=== PATIENT | female | born 1945 | race Caucasian/White ===

== ENCOUNTER 2017-05-03 12:46 | Observation (INO) | payer OTHER, MEDICARE ==
[~2017-05-03] VITALS: Ht 147.3 cm; Wt 51.1 kg
[~2017-05-03 12:46] MED LIST: ASPCH81; B-COCAP2 PO; CALCIUM PO; CHOL100010 PO; FLV400 PO; KRILL PO; MAGNESIUM PO; NICIAN; RESVERATROL PO; ZINC PO
[2017-05-03] MEDS ORDERED: ASPIRIN 81 MG CHEW PO STA (13:19)
--- NOTE | 2017-05-03 13:37 | EMERGENCY ROOM VISIT NOTE ---
History First contact with patient: 13:06 Chief Complaint: CHEST PAIN Stated Complaint: CHEST PAIN Nursing Triage Summary: patient states about 11 am " I had really bad chest pains. It lasted about 45 mins. I dont have any pain right now. We were painting when it started." shortness of breath with the chest pains. started new medication for cholesterol 3 days ago History of Present Illness The patient is a 71 year old female who presents to the Emergency Room with complaints of exertional chest pain that started 11 AM today. Patient states that she was painting with a roller when her symptoms started. She states that her chest pain lasted approximately 45 minutes, gradually got better, and is completely gone now. She describes the chest pain as a pressure and heaviness in the center of her chest, radiates to both sides and into her back, came on gradually over several minutes and was very intense, now completely resolved and rates her pain as 0/10. She had associated shortness of breath with the chest pain, she states that has also resolved since the pain is gone. She now just complains of feeling generally weak and fatigued. She denies any associated nausea or vomiting, diaphoresis, dizziness or syncope. She denies any radiation of pain into her neck, jaw, or arms. She takes a baby aspirin daily, today she took 2 baby aspirins when her chest pain started. She is a current every day smoker, one half pack per day. She reports that she has been having high blood pressure for the past few months, she was started on losartan 2 months ago and started taking a statin 3 days ago. She also reports a family history of heart disease on her father's side. She has never had a stress test before. She denies any headaches, vision changes, neck pain or stiffness, back pain, abdominal pain, diarrhea or constipation, bloody or black stools, urinary symptoms, or rash. Review of Systems A complete 10 point review of systems was reviewed with the patient with pertinent positives and negatives as per history of present illness. All else were negative. Past Medical/Surgical History Medical Problems: (1) Chest pain Social History Smoking Status: Current Every Day Smoker Alcohol Use: none Drug Use: none Marital Status: Housing Status: lives with significant other Current/Historical Medications Scheduled Aspirin (Aspirin), 81 MG PO DAILY B-Complex Vitamins (Vitamin B Complex), 1 TAB PO DAILY Qxphqtq-Llltayrxg-Jnxa (Calcium Magnesium & Zinc), 1 TAB PO DAILY Cholecalciferol (Vitamin D), 2,000 UNITS PO DAILY Folic Acid (Folic Acid), 400 MCG PO DAILY Losartan Potassium (Losartan Potassium), 50 MG PO DAILY [place]-3 Fatty Acids-Cholecalci (Dry Eye [place] Benefits/Vi), 1 CAP PO DAILY Pravastatin Sod (Pravastatin Sodium), 10 MG PO DAILY Allergies Reviewed in chart Physical Exam Vital Signs Date Time Temp Pulse Resp B/P (MAP) Pulse Ox O2 Delivery O2 Flow Rate FiO2 05/03/17 15:51 97 Room Air 05/03/17 13:28 68 18 171/58 97 Room Air 05/03/17 13:10 64 05/03/17 13:09 99 Room Air 05/03/17 12:49 36.7 65 18 154/62 99 Room Air Physical Exam CONSTITUTIONAL: Pleasant and cooperative. No acute distress. Well appearing and well nourished. HEENT: Normocephalic, atraumatic. Pupils equal, round and reactive to light, EOMI. TMs normal. Pharynx normal. Moist mucous membranes. NECK: Supple, full active range of motion without discomfort. No cervical adenopathy. RESPIRATORY: Clear to auscultation bilaterally with no wheezing, crackles, rhonchi or stridor. Equal expansion bilaterally. CARDIOVASCULAR: Regular rate and rhythm with no murmurs, rubs or gallops. Normal peripheral perfusion. No edema. GASTROINTESTINAL: Soft, nontender, nondistended. No palpable masses or HSM. Bowel sounds present in all quadrants. MUSCULOSKELETAL: Full range of motion of all joints without discomfort. No calf swelling or tenderness to palpation. INTEGUMENTARY: No rash or other significant dermatologic conditions noted. NEUROLOGIC: Alert and oriented X 4 with normal affect. Cranial nerves II-XII grossly intact. No focal neurologic deficits noted. Normal strength and sensation in all 4 extremities. Normal speech. Normal gait observed. Medical Decision & Procedures ER Provider Diagnostic Interpretation: TWO VIEW CHEST CLINICAL HISTORY: Atypical chest pain.. FINDINGS: PA and lateral chest radiographs are compared to study dated 01/19/2010. The heart is top normal for projection. There is atherosclerotic calcification of the thoracic aorta. Emphysema and chronic interstitial thickening are similar to previous. There is mild bibasilar atelectasis. A trace left pleural effusion is noted on the lateral view. No airspace consolidation is identified typical for pneumonia. There is no pneumothorax. The skeletal structures are osteopenic. Degenerative changes seen throughout the thoracic spine. IMPRESSION: 1. Suspect emphysema. 2. A trace left pleural effusion is noted on the lateral view. There is no airspace consolidation identified typical for pneumonia. Laboratory Results 05/03/17 13:05 Red Blood Count 4.02, Mean Corpuscular Volume 98.5, Mean Corpuscular Hemoglobin 33.3, Mean Corpuscular Hemoglobin Concent 33.8, Mean Platelet Volume 9.9, Neutrophils (%) (Auto) 64.3, Lymphocytes (%) (Auto) 25.7, Monocytes (%) (Auto) 7.4, Eosinophils (%) (Auto) 1.9, Basophils (%) (Auto) 0.4, Neutrophils # (Auto) 8.67, Lymphocytes # (Auto) 3.46, Monocytes # (Auto) 1.00, Eosinophils # (Auto) 0.26, Basophils # (Auto) 0.05 05/03/17 13:05 Test 05/03/17 13:05 White Blood Count 13.48 K/uL (4.8-10.8) Red Blood Count 4.02 M/uL (4.2-5.4) Hemoglobin 13.4 g/dL (12.0-16.0) Hematocrit 39.6 % (37-47) Mean Corpuscular Volume 98.5 fL (80-100) Mean Corpuscular Hemoglobin 33.3 pg (25-34) Mean Corpuscular Hemoglobin Concent 33.8 g/dl (32-36) Platelet Count 256 K/uL (130-400) Mean Platelet Volume 9.9 fL (7.4-10.4) Neutrophils (%) (Auto) 64.3 % Lymphocytes (%) (Auto) 25.7 % Monocytes (%) (Auto) 7.4 % Eosinophils (%) (Auto) 1.9 % Basophils (%) (Auto) 0.4 % Neutrophils # (Auto) 8.67 K/uL (1.4-6.5) Lymphocytes # (Auto) 3.46 K/uL (1.2-3.4) Monocytes # (Auto) 1.00 K/uL (0.11-0.59) Eosinophils # (Auto) 0.26 K/uL (0-0.5) Basophils # (Auto) 0.05 K/uL (0-0.2) RDW Standard Deviation 49.4 fL (36.4-46.3) RDW Coefficient of Variation 13.8 % (11.5-14.5) Immature Granulocyte % (Auto) 0.3 % Immature Granulocyte # (Auto) 0.04 K/uL (0.00-0.02) Prothrombin Time 9.9 SECONDS (9.0-12.0) Prothromb Time International Ratio 0.9 (0.9-1.1) Activated Partial Thromboplast Time 25.9 SECONDS (21.0-31.0) Partial Thromboplastin Ratio 1.0 Anion Gap 8.0 mmol/L (3-11) Est Creatinine Clear Calc Drug Dose 47.3 ml/min Estimated GFR () 90.8 Estimated GFR (Non- 78.4 BUN/Creatinine Ratio 33.2 (10-20) Calcium Level 9.6 mg/dl (8.5-10.1) Total Bilirubin 0.3 mg/dl (0.2-1) Direct Bilirubin < 0.1 mg/dl (0-0.2) Aspartate Amino Transf (AST/SGOT) 13 U/L (15-37) Alanine Aminotransferase (ALT/SGPT) 17 U/L (12-78) Alkaline Phosphatase 69 U/L (45-117) Troponin I < 0.015 ng/ml (0-0.045) Total Protein 7.7 gm/dl (6.4-8.2) Albumin 3.9 gm/dl (3.4-5.0) Lipase 238 U/L (73-393) Medications Administered Medications (Trade) Dose Ordered Sig/Jaret Route Start Time Stop Time Status Last Admin Dose Admin Aspirin (Aspirin Chew) 162 mg NOW STAT PO 05/03/17 13:19 05/03/17 13:22 DC 05/03/17 13:28 162 MG ECG Indication: chest pain Rate (beats per minute): 63 Rhythm: normal sinus Findings: no acute ischemic change, no ectopy, other (short VA interval) Change: no significant change (when compared to EKG from 01/19/2010) Medical Decision CC: Patient presenting with complaint of chest pain Interpretation of Labs: Mild leukocytosis, no anemia, no significant electrolyte abnormalities, mildly elevated BUN, but normal creatinine, normal liver enzymes and lipase. Initial troponin is negative. Coagulation factors WNL. Differential Diagnosis: Includes, but not limited to acute coronary syndrome, pulmonary embolism, aortic dissection, pneumothorax, pericarditis, anxiety, musculoskeletal pain, GERD, costochondritis, pneumonia, among others. Medication Reconciliation: I attest that I have personally reviewed the patient' s current medication list. Initial vital signs review: I reviewed the patient's vital signs and interpret them as follows: T: Afebrile; BP: Hypertensive; HR: Within normal limits; RR : Within normal limits; Pulse Ox: Within normal limits on room air. Blood pressure screening: The patient was found to have an elevated blood pressure and was referred to their primary doctor for recheck and further treatment. Summary: Patient was evaluated at bedside, history and physical exam performed. Patient is alert and oriented, in no acute distress, resting, in stretcher. She denies any symptoms of chest pain or shortness of breath at this time. Patient relates a history of chest pain that came on during exertion and relieved with rest. She has risk factors of smoking, hypertension, hyperlipidemia, and family history of heart disease. Heart score 5. Orders were placed at bedside for labs, chest x-ray, EKG to evaluate for acute coronary syndrome. EKG reviewed at bedside, normal sinus rhythm with a short VA rate of 63 bpm, no acute ischemic changes by my interpretation. Patient took 2 baby aspirin this morning, she was given 2 additional baby aspirin for complete dose of aspirin. She was not given any additional medications that she currently denies any chest pain. Patient discussed with Dr. Barron, who agrees with my assessment and plan. Labs reviewed as above, noting some leukocytosis. Negative troponin. Chest x-ray shows a small left pleural effusion but no evidence of pneumonia. I spoke with Dr. Jones, hospitalist, who agrees to evaluate the patient for admission. Patient reassessed multiple times throughout ED stay, she continues to deny chest pain or any other complaints. The patient and her were updated on all results and plan for admission to the hospital for chest pain rule out, they verbalized understanding and the patient was agreeable to admission. Patient was stable at time of admission. Impression Primary Impression: Exertional chest pain Departure Information Dispostion Admitted as an inpatient Condition FAIR Referrals Digna Pagan D.O. (PCP) Patient Instructions My [facility]
[2017-05-03 13:40] LABS: BASO % 0.4 %; BASO ABS # 0.05 K/uL (0-0.2); EOS % 1.9 %; EOS ABS # 0.26 K/uL (0-0.5); HEMATOCRIT 39.6 % (37-47); HEMOGLOBIN 13.4 g/dL (12.0-16.0); IG# 0.04 K/uL (0.00-0.02); LYMPH % 25.7 %; LYMPH ABS # 3.46 K/uL (1.2-3.4); MEAN CELL VOLUME 98.5 fL (80-100); MEAN CORPUSCULAR HEMOGLOBIN 33.3 pg (25-34); MEAN CORPUSCULAR HGB CONC 33.8 g/dl (32-36); MEAN PLATELET VOLUME 9.9 fL (7.4-10.4); MONO % 7.4 %; NEUT % 64.3 %; NEUT ABS # 8.67 K/uL (1.4-6.5); PLATELET COUNT 256 K/uL (130-400); RED CELL DISTRIBUTION WIDTH CV 13.8 % (11.5-14.5); RED CELL DISTRIBUTION WIDTH SD 49.4 fL (36.4-46.3); WHITE BLOOD COUNT 13.48 K/uL (4.8-10.8)
[2017-05-03 13:51] LABS: INR 0.9 (0.9-1.1); PTT PATIENT 25.9 SECONDS (21.0-31.0)
[2017-05-03 14:04] LABS: ALBUMIN 3.9 gm/dl (3.4-5.0); ALT/SGPT 17 U/L (12-78); BLOOD UREA NITROGEN 25 mg/dl (7-18); CALCIUM 9.6 mg/dl (8.5-10.1); CARBON DIOXIDE 25 mmol/L (21-32); CREATININE 0.76 mg/dl (0.60-1.20); GLUCOSE 87 mg/dl (70-99); LIPASE 238 U/L (73-393); POTASSIUM 4.1 mmol/L (3.5-5.1); SODIUM 134 mmol/L (136-145)
[2017-05-03] MEDS ORDERED: B-COTAB18 PO (14:05)
[2017-05-03] MEDS ORDERED: CZR50 PO (14:05)
[2017-05-03] MEDS ORDERED: OMEG-10 PO (14:05)
[2017-05-03] MEDS ORDERED: CHOL20009 PO (14:05)
[2017-05-03] MEDS ORDERED: ASPI1TAB83 PO (14:05)
[2017-05-03] MEDS ORDERED: FLV400 PO (14:05)
[2017-05-03] MEDS ORDERED: PRVC10 PO (14:05)
[2017-05-03] MEDS ORDERED: CALC1TAB27 PO (14:05)
[2017-05-03 14:09] LABS: ALKALINE PHOSPHATASE 69 U/L (45-117); AST/SGOT 13 U/L (15-37); TOTAL PROTEIN 7.7 gm/dl (6.4-8.2)
--- NOTE | 2017-05-03 14:32 | DIAGNOSTIC IMAGING REPORT ---
TWO VIEW CHEST CLINICAL HISTORY: Atypical chest pain.. FINDINGS: PA and lateral chest radiographs are compared to study dated 01/19/2010. The heart is top normal for projection. There is atherosclerotic calcification of the thoracic aorta. Emphysema and chronic interstitial thickening are similar to previous. There is mild bibasilar atelectasis. A trace left pleural effusion is noted on the lateral view. No airspace consolidation is identified typical for pneumonia. There is no pneumothorax. The skeletal structures are osteopenic. Degenerative changes seen throughout the thoracic spine. IMPRESSION: 1. Suspect emphysema. 2. A trace left pleural effusion is noted on the lateral view. There is no airspace consolidation identified typical for pneumonia. Electronically signed by: Santy Colon M.D. 05/03/2017 2:30 PM Dictated Date/Time: 05/03/2017 2:29 PM
--- NOTE | 2017-05-03 15:21 | EMERGENCY ROOM VISIT NOTE ---
ED Visit Note First contact with patient: 13:07 I have seen and examined this patient with Ruby Shelby and generally agree with the treatment plan as discussed. Current/Historical Medications Scheduled Aspirin (Aspirin), 81 MG PO DAILY B-Complex Vitamins (Vitamin B Complex), 1 TAB PO DAILY Bsvotny-Nlkwkcbnq-Pyyi (Calcium Magnesium & Zinc), 1 TAB PO DAILY Cholecalciferol (Vitamin D), 2,000 UNITS PO DAILY Folic Acid (Folic Acid), 400 MCG PO DAILY Losartan Potassium (Losartan Potassium), 50 MG PO DAILY [place]-3 Fatty Acids-Cholecalci (Dry Eye [place] Benefits/Vi), 1 CAP PO DAILY Pravastatin Sod (Pravastatin Sodium), 10 MG PO DAILY Allergies Coded Allergies: Alendronate (Unverified Allergy, Mild, UNKNOWN, 05/03/17) Atorvastatin (Unverified Allergy, Mild, MUSCLE PAIN, 05/03/17) Vital Signs Date Time Temp Pulse Resp B/P (MAP) Pulse Ox O2 Delivery O2 Flow Rate FiO2 05/03/17 13:28 68 18 171/58 97 Room Air 05/03/17 13:10 64 05/03/17 13:09 99 Room Air 05/03/17 12:49 36.7 65 18 154/62 99 Room Air Laboratory Results 05/03/17 13:05 Red Blood Count 4.02, Mean Corpuscular Volume 98.5, Mean Corpuscular Hemoglobin 33.3, Mean Corpuscular Hemoglobin Concent 33.8, Mean Platelet Volume 9.9, Neutrophils (%) (Auto) 64.3, Lymphocytes (%) (Auto) 25.7, Monocytes (%) (Auto) 7.4, Eosinophils (%) (Auto) 1.9, Basophils (%) (Auto) 0.4, Neutrophils # (Auto) 8.67, Lymphocytes # (Auto) 3.46, Monocytes # (Auto) 1.00, Eosinophils # (Auto) 0.26, Basophils # (Auto) 0.05 05/03/17 13:05 Test 05/03/17 13:05 White Blood Count 13.48 K/uL (4.8-10.8) Red Blood Count 4.02 M/uL (4.2-5.4) Hemoglobin 13.4 g/dL (12.0-16.0) Hematocrit 39.6 % (37-47) Mean Corpuscular Volume 98.5 fL (80-100) Mean Corpuscular Hemoglobin 33.3 pg (25-34) Mean Corpuscular Hemoglobin Concent 33.8 g/dl (32-36) Platelet Count 256 K/uL (130-400) Mean Platelet Volume 9.9 fL (7.4-10.4) Neutrophils (%) (Auto) 64.3 % Lymphocytes (%) (Auto) 25.7 % Monocytes (%) (Auto) 7.4 % Eosinophils (%) (Auto) 1.9 % Basophils (%) (Auto) 0.4 % Neutrophils # (Auto) 8.67 K/uL (1.4-6.5) Lymphocytes # (Auto) 3.46 K/uL (1.2-3.4) Monocytes # (Auto) 1.00 K/uL (0.11-0.59) Eosinophils # (Auto) 0.26 K/uL (0-0.5) Basophils # (Auto) 0.05 K/uL (0-0.2) RDW Standard Deviation 49.4 fL (36.4-46.3) RDW Coefficient of Variation 13.8 % (11.5-14.5) Immature Granulocyte % (Auto) 0.3 % Immature Granulocyte # (Auto) 0.04 K/uL (0.00-0.02) Prothrombin Time 9.9 SECONDS (9.0-12.0) Prothromb Time International Ratio 0.9 (0.9-1.1) Activated Partial Thromboplast Time 25.9 SECONDS (21.0-31.0) Partial Thromboplastin Ratio 1.0 Anion Gap 8.0 mmol/L (3-11) Est Creatinine Clear Calc Drug Dose 47.3 ml/min Estimated GFR () 90.8 Estimated GFR (Non- 78.4 BUN/Creatinine Ratio 33.2 (10-20) Calcium Level 9.6 mg/dl (8.5-10.1) Total Bilirubin 0.3 mg/dl (0.2-1) Direct Bilirubin < 0.1 mg/dl (0-0.2) Aspartate Amino Transf (AST/SGOT) 13 U/L (15-37) Alanine Aminotransferase (ALT/SGPT) 17 U/L (12-78) Alkaline Phosphatase 69 U/L (45-117) Troponin I < 0.015 ng/ml (0-0.045) Total Protein 7.7 gm/dl (6.4-8.2) Albumin 3.9 gm/dl (3.4-5.0) Lipase 238 U/L (73-393) Medications Administered Medications (Trade) Dose Ordered Sig/Jaret Route Start Time Stop Time Status Last Admin Dose Admin Aspirin (Aspirin Chew) 162 mg NOW STAT PO 05/03/17 13:19 05/03/17 13:22 DC 05/03/17 13:28 162 MG Departure Information Referrals Digna Pagan D.OFloridalma (PCP) Patient Instructions My [facility]
[2017-05-03] MEDS ORDERED: NITROGLYCERIN 0.4 MG SL PER TAB CHARGE SL PRN (15:45)
[2017-05-03] MEDS ORDERED: ONDANSETRON INJ 2 MG/ML 2 ML VIAL IV PRN (15:45)
[2017-05-03] MEDS ORDERED: ALUMINUM/MAGNESIUM/SIMETH (MAALOX MAX) 30 ML UDC PO PRN (15:45)
[2017-05-03] MEDS ORDERED: MAGNESIUM HYDROXIDE SUSP 30 ML UDC PO PRN (15:45)
[2017-05-03] MEDS ORDERED: POLYETHYLENE (MIRALAX) 17 GM PACK PO PRN (15:45)
[2017-05-03] MEDS ORDERED: ACETAMINOPHEN 325 MG TAB PO PRN (15:45)
[2017-05-03 15:51] VITALS: O2SAT 97; Ht 147.3 cm; Wt 51.1 kg
--- NOTE | 2017-05-03 16:26 | History and Physical ---
History & Physical Date & Time of Service: May 03, 2017 at 16:25 Chief Complaint: Chest Pain Primary Care Physician: Digna Pagan D.O. History of Present Illness Source: patient, clinic records, hospital records This is a 71yo F with a PMH of HTN, HLD, tobacco use disorder and osteopenia who presents with chest pain starting this morning. Patient was painting shutters when she experienced sudden onset 9/10 pressure to her central chest and epigastrium with radiation to left/right sides and back. Associated with SOB and lightheadedness. Episode lasted for ~40 minutes and resolved spontaneously. Took 2 baby aspirin en route to the ED. Pain had completely resolved by the time of arrival. Denies fever, chills, lightheadedness, near- syncope, headache, visual changes, palpitations, CP, SOB, abdominal pain, nausea, vomiting, dysuria, constipation, diarrhea or LE swelling. Had one episode of chest pressure similar to this years ago and was diagnosed with IBS. Recently diagnosed with HTN and was started on losartan 3 months ago. Started on pravachol 3 days ago. Tried Lipitor 10 years ago but it was stopped due to severe myalgia. Longtime smoker and currently smokes 1/2 ppd. + Family history of heart disease (father). Has not had a stress test before. Family History FH: heart disease FATHER Social History Smoking Status: Current Every Day Smoker (1/2 ppd) Drug Use: none Marital Status: Housing status: lives with significant other Multi-Drug Resistant Organisms History of MDRO: No Allergies Coded Allergies: Alendronate (Unverified Allergy, Mild, UNKNOWN, 05/03/17) Atorvastatin (Unverified Allergy, Mild, MUSCLE PAIN, 05/03/17) Home Medications Scheduled Aspirin (Aspirin), 81 MG PO DAILY B-Complex Vitamins (Vitamin B Complex), 1 TAB PO DAILY Eikhxmy-Jrhffcyom-Btsq (Calcium Magnesium & Zinc), 1 TAB PO DAILY Cholecalciferol (Vitamin D), 2,000 UNITS PO DAILY Folic Acid (Folic Acid), 400 MCG PO DAILY Losartan Potassium (Losartan Potassium), 50 MG PO DAILY [place]-3 Fatty Acids-Cholecalci (Dry Eye [place] Benefits/Vi), 1 CAP PO DAILY Pravastatin Sod (Pravastatin Sodium), 10 MG PO DAILY Review of Systems Ten systems reviewed and negative except as noted in the HPI. Physical Exam Vital Signs Date Time Temp Pulse Resp B/P (MAP) Pulse Ox O2 Delivery O2 Flow Rate FiO2 05/03/17 16:22 64 20 130/53 97 Room Air 05/03/17 15:51 97 Room Air 05/03/17 13:28 68 18 171/58 97 Room Air 05/03/17 13:10 64 05/03/17 13:09 99 Room Air 05/03/17 12:49 36.7 65 18 154/62 99 Room Air General Appearance: WD/WN, no apparent distress Head: normocephalic, atraumatic Eyes: normal inspection, PERRL, sclerae normal ENT: normal ENT inspection, hearing grossly normal, pharynx normal Neck: supple, thyroid normal, trachea midline Respiratory/Chest: chest non-tender, lungs clear, normal breath sounds, no respiratory distress, no accessory muscle use Cardiovascular: regular rate, rhythm, no murmur, normal peripheral pulses Abdomen/GI: non tender, soft, no organomegaly Back: normal inspection Extremities/Musculoskelatal: normal inspection, no calf tenderness, no pedal edema Neurologic/Psych: no motor/sensory deficits, alert, normal mood/affect, oriented x 3 Skin: normal color, warm/dry Diagnostics Laboratory Results Results Past 24 Hours Test 05/03/17 13:05 Range/Units White Blood Count 13.48 4.8-10.8 K/uL Red Blood Count 4.02 4.2-5.4 M/uL Hemoglobin 13.4 12.0-16.0 g/dL Hematocrit 39.6 37-47 % Mean Corpuscular Volume 98.5 80-100 fL Mean Corpuscular Hemoglobin 33.3 25-34 pg Mean Corpuscular Hemoglobin Concent 33.8 32-36 g/dl Platelet Count 256 130-400 K/uL Mean Platelet Volume 9.9 7.4-10.4 fL Neutrophils (%) (Auto) 64.3 % Lymphocytes (%) (Auto) 25.7 % Monocytes (%) (Auto) 7.4 % Eosinophils (%) (Auto) 1.9 % Basophils (%) (Auto) 0.4 % Neutrophils # (Auto) 8.67 1.4-6.5 K/uL Lymphocytes # (Auto) 3.46 1.2-3.4 K/uL Monocytes # (Auto) 1.00 0.11-0.59 K/uL Eosinophils # (Auto) 0.26 0-0.5 K/uL Basophils # (Auto) 0.05 0-0.2 K/uL RDW Standard Deviation 49.4 36.4-46.3 fL RDW Coefficient of Variation 13.8 11.5-14.5 % Immature Granulocyte % (Auto) 0.3 % Immature Granulocyte # (Auto) 0.04 0.00-0.02 K/uL Prothrombin Time 9.9 9.0-12.0 SECONDS Prothromb Time International Ratio 0.9 0.9-1.1 Activated Partial Thromboplast Time 25.9 21.0-31.0 SECONDS Partial Thromboplastin Ratio 1.0 Sodium Level 134 136-145 mmol/L Potassium Level 4.1 3.5-5.1 mmol/L Chloride Level 101 98-107 mmol/L Carbon Dioxide Level 25 21-32 mmol/L Anion Gap 8.0 3-11 mmol/L Blood Urea Nitrogen 25 7-18 mg/dl Creatinine 0.76 0.60-1.20 mg/dl Est Creatinine Clear Calc Drug Dose 47.3 ml/min Estimated GFR () 90.8 Estimated GFR (Non- 78.4 BUN/Creatinine Ratio 33.2 10-20 Random Glucose 87 70-99 mg/dl Calcium Level 9.6 8.5-10.1 mg/dl Total Bilirubin 0.3 0.2-1 mg/dl Direct Bilirubin < 0.1 0-0.2 mg/dl Aspartate Amino Transf (AST/SGOT) 13 15-37 U/L Alanine Aminotransferase (ALT/SGPT) 17 12-78 U/L Alkaline Phosphatase 69 45-117 U/L Troponin I < 0.015 0-0.045 ng/ml Total Protein 7.7 6.4-8.2 gm/dl Albumin 3.9 3.4-5.0 gm/dl Lipase 238 73-393 U/L Diagnostic Radiology CXR: IMPRESSION: 1. Suspect emphysema. 2. A trace left pleural effusion is noted on the lateral view. There is no airspace consolidation identified typical for pneumonia. EKG NSR with short [place] interval. No change from prior EKG Impression Assessment and Plan This is a 71yo F with a PMH of HTN, HLD, tobacco use disorder and osteopenia who presents with chest pain starting this morning. Chest pain: -R/o ACS; risk factors include HTN, HLD, tobacco use, + family history -Initial troponin negative -EKG-no acute ischemic changes -CXR- Suspect emphysema, a trace left pleural effusion is noted on the lateral view. -Trend serial cardiac enzymes -Check echo -Repeat EKG in am -Consult cardiology -NPO after midnight -Stress echo in AM HTN: -Normotensive -Cont losartan HLD: -Cont prevachol Tobacco use disorder: -Interested in cessation Osteopenia: -Cont vitamin D, calcium DVT Ppx: SQ heparin Code status: FULL PCP: Felipe Pagan Dispo: Observation telemetry. Plan to return home once medically stable. Patient seen in collaboration with Dr. Jones. Please see addendum. ATTENDING ADDENDUM : pt seen and examined , care co ordinated with Nancy Breaux PA-C 71 yo f with past medical hx of HTN , hyperlipidemia , tobacco abuse disorder , presented to ER with complain of substernal chest discomfort /pain , felt dizzy /lightheaded feeling like passing out , bilateral arm numbness , symptom lasted for approx 35-40 mins pt was painting shutters that time no prior hx of SC was symptom free in ER initial Cardiac work up was negative monitor in tele for serial troponin , resting ECHO exercise Cardiac stress test in AM if pt remains symptom free and cardiac markers are negative Please refer to documentation of Nancy Breaux PA-C for discussion of other issues Darcy Jones MD Level of Care Telemetry Advanced Directives Existing Living Will: Yes Existing Power of Portfolio Administrator: Yes Resuscitation Status FULL RESUSCITATION VTE Prophylaxis VTE Risk Assessment Done? Y/N: Yes Risk Level: Moderate Given or contraindicated: Unfractionated heparin SQ Additional Copies To Digna Pagan D.O.
[2017-05-03] MEDS ORDERED: IV FLUIDS COMPLETED PRN (16:30)
[2017-05-03] MEDS ORDERED: SODIUM CHLORIDE 0.9% 1000ML 1,000 ML IV SCH (18:00)
[2017-05-03 18:17] VITALS: BP 144/49; PULSE 63; TEMP 36.7; O2SAT 96
[2017-05-03 20:00] VITALS: O2SAT 96
[2017-05-03] MEDS: HEPARIN SOD 5000 UNIT/0.5 ML CARP SQ SCH (21:34)
[2017-05-03 22:46] VITALS: BP 119/60; PULSE 62; TEMP 36.7; O2SAT 94
[2017-05-04] MEDS ORDERED: CEFTRIAXONE SOD INJ 1 GM in DEXTROSE 5% ADD-VANTAGE 50ML 50 ML IV SCH ×2
[2017-05-04 03:34] VITALS: BP 108/64; PULSE 57; TEMP 36.7; O2SAT 95
[2017-05-04] MEDS: HEPARIN SOD 5000 UNIT/0.5 ML CARP SQ SCH ×2 (04:55→13:54)
[2017-05-04 06:48] LABS: HEMATOCRIT 38.6 % (37-47); HEMOGLOBIN 12.9 g/dL (12.0-16.0); MEAN CELL VOLUME 98.7 fL (80-100); MEAN CORPUSCULAR HGB CONC 33.4 g/dl (32-36); MEAN PLATELET VOLUME 9.8 fL (7.4-10.4); PLATELET COUNT 239 K/uL (130-400); RED CELL DISTRIBUTION WIDTH CV 13.7 % (11.5-14.5); RED CELL DISTRIBUTION WIDTH SD 49.4 fL (36.4-46.3); WHITE BLOOD COUNT 8.79 K/uL (4.8-10.8)
[2017-05-04 07:18] LABS: BLOOD UREA NITROGEN 18 mg/dl (7-18); CALCIUM 8.9 mg/dl (8.5-10.1); CARBON DIOXIDE 28 mmol/L (21-32); CREATININE 0.74 mg/dl (0.60-1.20); GLUCOSE 89 mg/dl (70-99); POTASSIUM 4.2 mmol/L (3.5-5.1); SODIUM 140 mmol/L (136-145)
[2017-05-04 07:23] LABS: CHOLESTEROL 202 mg/dl (0-200); LDL CHOLESTEROL CALCULATED 119 mg/dl
[2017-05-04 07:27] VITALS: BP 118/60; PULSE 57; TEMP 36.6; O2SAT 95
[2017-05-04 08:00] VITALS: O2SAT 95
[2017-05-04] MEDS ORDERED: PRAVASTATIN SOD 10 MG TAB PO SCH (09:00)
[2017-05-04] MEDS ORDERED: ASPIRIN 81 MG ECTAB PO SCH ×2 (09:00)
[2017-05-04] MEDS ORDERED: LOSARTAN POTASSIUM 50 MG TAB PO SCH (09:00)
[2017-05-04] MEDS ORDERED: CHOLECALCIFEROL 1000 INTER.UNIT TAB PO SCH (09:00)
[2017-05-04] MEDS ORDERED: CALCIUM MAGNESIUM ZINC PO SCH (09:00)
[2017-05-04] MEDS ORDERED: VITAMIN B COMPLEX TAB PO SCH (09:00)
[2017-05-04] MEDS ORDERED: FoLIC ACID TAB 400 MCG TAB PO SCH (09:00)
[2017-05-04] MEDS ORDERED: OMEGA-3 (PURIFIED FISH OIL) 1 GM CAP PO SCH (09:00)
[2017-05-04] MEDS ORDERED: DOBUTamine HCL 12.5 MG/ML 20 ML VIAL ONE (12:16)
[2017-05-04] MEDS ORDERED: ATROPINE SULFATE 0.1 MG/ML 5ML SYR ONE (12:17)
[2017-05-04] MEDS ORDERED: METOPROLOL TARTRATE 1 MG/ML VIAL ONE (12:17)
[2017-05-04 13:30] VITALS: O2SAT 95
--- NOTE | 2017-05-04 13:52 | DOBUTAMINE ECHO ---
*NOTICE TO RECEIVING [employer] This information is strictly Confidential and protected under [place] law. [place] law prohibits you from making any further disclosure of this information unless further disclosure is expressly permitted by the written consent of the person to whom it pertains or is authorized by law. A general authorization for the release of medical or other information is not sufficient for this purpose. Hospital accepts no responsibility if the information is made available to any other person, INCLUDING THE PATIENT. Interpretation Summary * The study was technically adequate. * -- Conclusions -- * STRESS STUDY: * Normal pharmacologic stress echocardiogram. * No echocardiographic or ECG evidence of myocardial ischemia having achieved heart rate adequate for diagnostic purposes. * No symptoms suggestive of angina were induced. * RESTING STUDY: * The LV Ejection Fraction = 60-65%. * The right ventricle is normal in size and function. * There is trace mitral regurgitation. * There is mild tricuspid regurgitation. * Aortic valve sclerosis mild, without significant aortic valvular stenosis. * Mild aortic regurgitation. * Mild pulmonary hypertension was present. * The PA systolic pressure was calculated to be 40 mm Hg. * Consider routine follow up resting echocardiogram in 1-2 years for follow up of valvular insufficiency and mild pulmonary hypertension. * Smoking cessation discussed with patient at completion of stress test. Procedure Details * DOBUTAMINE ECHO, CPT#[id number] * ECHO COLOR FLOW, CPT #[id number] * ECHO DOPPLER, CPT #[id number] * ECHOEX, CPT #[id number] Left Ventricle * The left ventricle is normal in size. * There is normal left ventricular wall thickness. * Left ventricular systolic function is normal. * Ejection Fraction = 60-65%. * Resting wall motion: Normal. Stress wall motion: Appropriate increase in Left ventricular systolic function and decrease in cavity size. No stress induced segmental wall motion abnormalities. Right Ventricle * The right ventricle is normal in size and function. Atria * The left atrial size is normal. * Right atrial size is normal. * No ASD detected; PFO is not assessed. Mitral Valve * The mitral valve is normal. * There is no mitral valve stenosis. * There is trace mitral regurgitation. Tricuspid Valve * The tricuspid valve is normal. * There is no tricuspid stenosis. * There is mild tricuspid regurgitation. * Mild pulmonary hypertension was present. The PA systolic pressure was calculated to be 40 mm Hg. Aortic Valve * The aortic valve is trileaflet. * Aortic valve sclerosis mild, without significant aortic valvular stenosis. * No hemodynamically significant valvular aortic stenosis. * Mild aortic regurgitation. Pulmonic Valve * The pulmonic valve is not well visualized. Great Vessels * The aortic root is normal size. Pericardium * There is no pericardial effusion. Stress Parameters * Normal baseline electrocardiogram. * The stress ECG response was normal * No arrhythmia were noted with stress. * The stress portion of this study was personally supervised by the undersigned interpreting physician. * Rest heart rate was '61' BPM. * Rest blood pressure was '163/40' * Maximum heart rate achieved was 144 bpm. * Maximum heart rate was 97 % of maximum age-predicted heart rate. * Maximum blood pressure was '181/46' * Maximum Dobutamine infusion rate was '40' mcg/kg/min. * A total of .25 mg of intravenous Atropine was used to supplement Dobutamine for heart rate response. * Dobutamine infusion was terminated due to achieving target heart rate * A total of 10 mg of IV Metoprolol was administered to reverse Dobutamine-induced tachycardia. * The patient did not exhibit any symptoms during drug infusion. * Normal blood pressure response to exercise. Left Ventricular Diastolic Function * Diastolic dysfunction, Grade II (pseudonormalization pattern). MMode 2D Measurements and Calculations IVSd 1.0 cm IVSs 1.2 cm LVIDd 3.7 cm LVIDs 2.5 cm LVPWd 0.96 cm LVPWs 1.2 cm IVS/LVPW 1.0 FS 33.8 % EDV(Teich) 59.9 ml ESV(Teich) 21.9 ml EF(Teich) 63.5 % EDV(cubed) 52.6 ml ESV(cubed) 15.3 ml EF(cubed) 71.0 % % IVS thick 18.0 % % LVPW thick 20.9 % LV mass(C)d 112.4 grams LV mass(C)dI 78.1 grams/m\S\2 LV mass(C)s 81.9 grams LV mass(C)sI 56.9 grams/m\S\2 SV(Teich) 38.1 ml SI(Teich) 26.4 ml/m\S\2 SV(cubed) 37.4 ml SI(cubed) 26.0 ml/m\S\2 Ao root diam 3.2 cm Ao root area 8.0 cm\S\2 ACS 1.3 cm LA dimension 3.6 cm asc Aorta Diam 2.9 cm LA/Ao 1.1 EDV(MOD-sp4) 82.0 ml ESV(MOD-sp4) 35.0 ml EF(MOD-sp4) 57.3 % EDV(MOD-sp2) 63.0 ml ESV(MOD-sp2) 23.0 ml EF(MOD-sp2) 63.5 % SV(MOD-sp4) 47.0 ml SI(MOD-sp4) 32.6 ml/m\S\2 SV(MOD-sp2) 40.0 ml SI(MOD-sp2) 27.8 ml/m\S\2 Doppler Measurements and Calculations MV E max tim 95.4 cm/sec MV A max tim 78.2 cm/sec MV E/A 1.2 MV P1/2t max tim 102.7 cm/sec MV P1/2t 70.2 msec MVA(P1/2t) 3.1 cm\S\2 MV dec slope 428.4 cm/sec\S\2 MV dec time 0.19 sec Ao V2 max 143.4 cm/sec Ao max PG 8.2 mmHg Ao max PG (full) 2.4 mmHg AI max tim 423.4 cm/sec AI max PG 71.7 mmHg AI dec slope 280.0 cm/sec\S\2 AI P1/2t 442.9 msec LV V1 max PG 5.8 mmHg LV V1 max 120.4 cm/sec PA V2 max 80.0 cm/sec PA max PG 2.6 mmHg TR max tim 287.2 cm/sec
--- NOTE | 2017-05-04 14:41 | Progress Note ---
Internal Med Progress Note Date of Service: May 04, 2017. Provider Documentation: SUBJECTIVE: No acute distress. No chest pain today. No shortness of breath. Patient s/p stress test OBJECTIVE: General Appearance: WD/WN, no apparent distress Head: normocephalic, atraumatic Eyes: normal inspection, sclerae normal ENT: normal ENT inspection, hearing grossly normal, pharynx normal Neck: supple, thyroid normal, trachea midline Respiratory/Chest: chest non-tender, lungs clear, normal breath sounds, no respiratory distress, no accessory muscle use Cardiovascular: regular rate, rhythm, no murmur, normal peripheral pulses Abdomen/GI: non tender, soft, no organomegaly Back: normal inspection Extremities/Musculoskelatal: normal inspection, no calf tenderness, no pedal edema Neurologic/Psych: no motor/sensory deficits, alert, normal mood/affect, oriented x 3 Skin: normal color, warm/dry ASSESSMENT & PLAN: This is a 71yo F with a PMH of HTN, HLD, tobacco use disorder and osteopenia who presents with chest pain Patients troponins were negative x 4 Dobutamine Stress Test 05/04/17 -- Conclusions -- STRESS STUDY: Normal pharmacologic stress echocardiogram. No echocardiographic or ECG evidence of myocardial ischemia having achieved heart rate adequate for diagnostic purposes. No symptoms suggestive of angina were induced. RESTING STUDY: The LV Ejection Fraction = 60-65%. The right ventricle is normal in size and function. There is trace mitral regurgitation. There is mild tricuspid regurgitation. Aortic valve sclerosis mild, without significant aortic valvular stenosis. Mild aortic regurgitation. Mild pulmonary hypertension was present. The PA systolic pressure was calculated to be 40 mm Hg. Consider routine follow up resting echocardiogram in 1-2 years for follow up of valvular insufficiency and mild pulmonary hypertension. Smoking cessation discussed with patient at completion of stress test. Discharge diagnosis: Non cardiac chest pain Mild valvular insufficiency and mild pulmonary hypertension Discharge follow up with 05/12/2017 3:30 PM Digna Pagan DO [facility] [place] Vital Signs: Date Time Temp Pulse Resp B/P (MAP) Pulse Ox O2 Delivery O2 Flow Rate FiO2 05/04/17 13:30 95 Room Air 05/04/17 08:00 95 Room Air 05/04/17 07:27 36.6 57 20 118/60 (79) 95 Room Air 05/04/17 04:00 Room Air 05/04/17 03:34 36.7 57 18 108/64 (79) 95 Room Air 05/04/17 00:00 Room Air 05/03/17 22:46 36.7 62 18 119/60 (79) 94 Room Air 05/03/17 20:00 96 Room Air 05/03/17 18:17 36.7 63 16 144/49 (80) 96 Room Air 05/03/17 17:16 71 20 130/54 98 Room Air 05/03/17 16:22 64 20 130/53 97 Room Air 05/03/17 15:51 97 Room Air Lab Results: Results Past 24 Hours Test 05/03/17 15:30 05/03/17 17:40 05/03/17 21:37 05/04/17 06:25 Range/Units Urine Color YELLOW Urine Appearance CLEAR CLEAR Urine pH 5.0 4.5-7.5 Urine Specific Olds <= 1.005 1.000-1.030 Urine Protein NEG NEG Urine Glucose (UA) NEG NEG Urine Ketones NEG NEG Urine Occult Blood TRACE NEG Urine Nitrite NEG NEG Urine Bilirubin NEG NEG Urine Urobilinogen NEG NEG Urine Leukocyte Esterase SMALL NEG Urine RBC 0-4 0-4 /hpf Urine WBC 1-5 0-5 /hpf Urine Epithelial Cells >30 0-5 /lpf Urine Bacteria 1+ NEG Troponin I < 0.015 < 0.015 < 0.015 0-0.045 ng/ml White Blood Count 8.79 4.8-10.8 K/uL Red Blood Count 3.91 4.2-5.4 M/uL Hemoglobin 12.9 12.0-16.0 g/dL Hematocrit 38.6 37-47 % Mean Corpuscular Volume 98.7 80-100 fL Mean Corpuscular Hemoglobin 33.0 25-34 pg Mean Corpuscular Hemoglobin Concent 33.4 32-36 g/dl RDW Standard Deviation 49.4 36.4-46.3 fL RDW Coefficient of Variation 13.7 11.5-14.5 % Platelet Count 239 130-400 K/uL Mean Platelet Volume 9.8 7.4-10.4 fL Sodium Level 140 136-145 mmol/L Potassium Level 4.2 3.5-5.1 mmol/L Chloride Level 108 98-107 mmol/L Carbon Dioxide Level 28 21-32 mmol/L Anion Gap 4.0 3-11 mmol/L Blood Urea Nitrogen 18 7-18 mg/dl Creatinine 0.74 0.60-1.20 mg/dl Est Creatinine Clear Calc Drug Dose 48.8 ml/min Estimated GFR () 93.8 Estimated GFR (Non- 80.9 BUN/Creatinine Ratio 23.8 10-20 Random Glucose 89 70-99 mg/dl Calcium Level 8.9 8.5-10.1 mg/dl Triglycerides Level 53 0-150 mg/dl Cholesterol Level 202 0-200 mg/dl HDL Cholesterol 72 mg/dl LDL Cholesterol, Calculated 119 mg/dl VLDL Cholesterol, Calculated 11 mg/dl Cholesterol/HDL Ratio 2.8 Microbiology Results 05/03/17 Urine Culture - Preliminary, Resulted PIN-POINT GROWTH PRESENT, REINCUBATING.
--- NOTE | 2017-05-04 14:52 | Discharge Instructions ---
Discharge Instructions Date of Service May 04, 2017. Admission Reason for Admission: Chest Pain Discharge Discharge Diagnosis / Problem: non cardiac chest pain, valvular insufficiency, pulmonary hypertension Discharge Goals Goal(s): Decrease discomfort, Improve function Activity Recommendations Activity Limitations: per Instructions/Follow-up section Shower/Bathe: no limitations . Instructions / Follow-Up Instructions / Follow-Up This is a 71yo F with a PMH of HTN, HLD, tobacco use disorder and osteopenia who presents with chest pain Patients troponins were negative x 4 Dobutamine Stress Test 05/04/17 -- Conclusions -- STRESS STUDY: Normal pharmacologic stress echocardiogram. No echocardiographic or ECG evidence of myocardial ischemia having achieved heart rate adequate for diagnostic purposes. No symptoms suggestive of angina were induced. RESTING STUDY: The LV Ejection Fraction = 60-65%. The right ventricle is normal in size and function. There is trace mitral regurgitation. There is mild tricuspid regurgitation. Aortic valve sclerosis mild, without significant aortic valvular stenosis. Mild aortic regurgitation. Mild pulmonary hypertension was present. The PA systolic pressure was calculated to be 40 mm Hg. Consider routine follow up resting echocardiogram in 1-2 years for follow up of valvular insufficiency and mild pulmonary hypertension. Smoking cessation discussed with patient at completion of stress test. Discharge diagnosis: Non cardiac chest pain Mild valvular insufficiency and mild pulmonary hypertension Discharge follow up with 05/12/2017 3:30 PM Digna Pagan DO [facility] Diet Patient's current hospital diet: AHA Diet (Heart Healthy) Discharge Diet Recommended Diet: AHA Diet (Heart Healthy) Pending Studies Studies pending at discharge: no Laboratory Results Lipid Panel Test 05/04/17 06:25 Range/Units Triglycerides Level 53 0-150 mg/dl Cholesterol Level 202 H 0-200 mg/dl HDL Cholesterol 72 mg/dl Cholesterol/HDL Ratio 2.8 LDL Cholesterol, Calculated 119 mg/dl Medical Emergencies . Who to Call and When: Medical Emergencies: If at any time you feel your situation is an emergency, please call 911 immediately. . Non-Emergent Contact Non-Emergency issues call your: Primary Care Provider . . "Provider Documentation" section prepared by Noe Tomlin. . VTE Core Measure Inpt VTE Proph given/why not?: Unfractionated heparin SQ
--- NOTE | 2017-05-04 14:53 | Discharge Summary ---
Discharge Summary Date of Service May 04, 2017. Discharge Summary Admission Date: May 03, 2017 at 15:34 Discharge Date: May 04, 2017 Discharge Disposition: Home Principal Diagnosis: Non cardiac chest pain, Mild valvular insufficiency and mild pulmonary hypertension Medication Reconciliation Continued Medications: Aspirin (Aspirin) 81 Mg Tab 81 MG PO DAILY B-Complex Vitamins (Vitamin B Complex) 1 Tab Tab 1 TAB PO DAILY Xgbtias-Yhyeoqqus-Eadt (Calcium Magnesium & Zinc) 1 Tab Tab 1 TAB PO DAILY Cholecalciferol (Vitamin D) 2,000 Unit Tab 2000 UNITS PO DAILY Folic Acid (Folic Acid) 400 Mcg Tab 400 MCG PO DAILY Losartan Potassium (Losartan Potassium) 50 Mg Tab 50 MG PO DAILY [place]-3 Fatty Acids-Cholecalci (Dry Eye [place] Benefits/Vi) 1 Cap Cap 1 CAP PO DAILY Pravastatin Sod (Pravastatin Sodium) 10 Mg Tab 10 MG PO DAILY Admission Information HPI (per Admitting provider): This is a 71yo F with a PMH of HTN, HLD, tobacco use disorder and osteopenia who presents with chest pain starting this morning. Patient was painting shutters when she experienced sudden onset 9/10 pressure to her central chest and epigastrium with radiation to left/right sides and back. Associated with SOB and lightheadedness. Episode lasted for ~40 minutes and resolved spontaneously. Took 2 baby aspirin en route to the ED. Pain had completely resolved by the time of arrival. Denies fever, chills, lightheadedness, near- syncope, headache, visual changes, palpitations, CP, SOB, abdominal pain, nausea, vomiting, dysuria, constipation, diarrhea or LE swelling. Had one episode of chest pressure similar to this years ago and was diagnosed with IBS. Recently diagnosed with HTN and was started on losartan 3 months ago. Started on pravachol 3 days ago. Tried Lipitor 10 years ago but it was stopped due to severe myalgia. Longtime smoker and currently smokes 1/2 ppd. + Family history of heart disease (father). Has not had a stress test before. Physical Exam (per Admitting): General Appearance: WD/WN, no apparent distress Head: normocephalic, atraumatic Eyes: normal inspection, PERRL, sclerae normal ENT: normal ENT inspection, hearing grossly normal, pharynx normal Neck: supple, thyroid normal, trachea midline Respiratory/Chest: chest non-tender, lungs clear, normal breath sounds, no respiratory distress, no accessory muscle use Cardiovascular: regular rate, rhythm, no murmur, normal peripheral pulses Abdomen/GI: non tender, soft, no organomegaly Back: normal inspection Extremities/Musculoskelatal: normal inspection, no calf tenderness, no pedal edema Neurologic/Psych: no motor/sensory deficits, alert, normal mood/affect, oriented x 3 Skin: normal color, warm/dry Hospital Course This is a 71yo F with a PMH of HTN, HLD, tobacco use disorder and osteopenia who presents with chest pain Patients troponins were negative x 4 Dobutamine Stress Test 05/04/17 -- Conclusions -- STRESS STUDY: Normal pharmacologic stress echocardiogram. No echocardiographic or ECG evidence of myocardial ischemia having achieved heart rate adequate for diagnostic purposes. No symptoms suggestive of angina were induced. RESTING STUDY: The LV Ejection Fraction = 60-65%. The right ventricle is normal in size and function. There is trace mitral regurgitation. There is mild tricuspid regurgitation. Aortic valve sclerosis mild, without significant aortic valvular stenosis. Mild aortic regurgitation. Mild pulmonary hypertension was present. The PA systolic pressure was calculated to be 40 mm Hg. Consider routine follow up resting echocardiogram in 1-2 years for follow up of valvular insufficiency and mild pulmonary hypertension. Smoking cessation discussed with patient at completion of stress test. Discharge diagnosis: Non cardiac chest pain Mild valvular insufficiency and mild pulmonary hypertension Discharge follow up with 05/12/2017 3:30 PM Digna Pagan DO [facility] Total time spent on discharge = 60 minutes This includes examination of the patient, discharge planning, medication reconciliation, and communication with other providers. Discharge Instructions see above
[2017-05-04 15:07] VITALS: BP 118/60; PULSE 57; TEMP 36.6; O2SAT 95
[2017-05-04 15:24] VITALS: BP 108/54; PULSE 60; TEMP 36.5; O2SAT 94
== END 2017-05-04 15:20 | disposition home or self-care (01) ==
LOC: C.EDB 12:47 → C.MED 15:34 → ENRESERV 16:40
PROVIDERS: ADMIT Hospitalist; ATTEND Hospitalist
DX: R07.89 Other chest pain (principal); I27.20 Pulmonary hypertension, unspecified; I38 Endocarditis, valve unspecified; F17.200 Nicotine dependence, unspecified, uncomplicated; I10 Essential (primary) hypertension; E78.5 Hyperlipidemia, unspecified; M85.80 Other specified disorders of bone density and structure, unspecified site; Z79.82 Long term (current) use of aspirin; Z79.899 Other long term (current) drug therapy; Z88.8 Allergy status to other drugs, medicaments and biological substances

== ENCOUNTER → 2017-06-23 | Outpatient (CLI) | payer OTHER, MEDICARE ==
[~2017-06-23] MED LIST changes: -ASPCH81; +ASPI1TAB83 PO; -B-COCAP2 PO; +B-COTAB18 PO; +CALC1TAB27 PO; -CALCIUM PO; -CHOL100010 PO; +CHOL20009 PO; +CZR50 PO; -KRILL PO; -MAGNESIUM PO; -NICIAN; +OMEG-10 PO; +PRVC10 PO; -RESVERATROL PO; -ZINC PO
--- NOTE | 2017-06-24 07:21 | MAMMOGRAPHY REPORT ---
BILATERAL DIGITAL SCREENING MAMMOGRAM TOMOSYNTHESIS WITH CAD: 06/23/2017 CLINICAL HISTORY: Routine screening. Patient has no complaints. TECHNIQUE: Breast tomosynthesis in addition to standard 2D mammography was performed. Current study was also evaluated with a Computer Aided Detection (CAD) system. COMPARISON: Comparison is made to exams dated: 12/24/2010 mammogram, 12/27/2011 mammogram - [facility], and 01/02/2009. BREAST COMPOSITION: The tissue of both breasts is heterogeneously dense, which may obscure small mas ses. FINDINGS: No suspicious masses, calcifications, or areas of architectural distortion are noted in ei ther breast. There has been no significant interval change compared to prior exams. Scattered bilater al benign-appearing calcifications are not significantly changed. IMPRESSION: ACR BI-RADS CATEGORY 2: BENIGN There is no mammographic evidence of malignancy. A 1 year screening mammogram is recommended. The pa tient will receive written notification of the results. Approximately 10% of breast cancers are not detected with mammography. A negative mammographic report should not delay biopsy if a clinically suggestive mass is present. Mariaa Russ M.D. ah/:06/23/2017 07:54:45 Airborne Sensor Specialist: Melvi NAQVI(R)(M), [facility] letter sent: Normal 1/2 BI-RADS Code: ACR BI-RADS Category 2: Benign
== END | disposition home or self-care (01) ==
LOC: C.MAMM 07:22
PROVIDERS: ATTEND Obstetrics & Gynecology
DX: Z12.31 Encounter for screening mammogram for malignant neoplasm of breast (principal)

== ENCOUNTER → 2017-11-03 | Outpatient (CLI) | payer OTHER, MEDICARE | END | disposition home or self-care (01) | LOC: C.PAPS 13:19 | PROVIDERS: ATTEND Obstetrics & Gynecology | DX: Z12.4 Encounter for screening for malignant neoplasm of cervix (principal); R87.616 Satisfactory cervical smear but lacking transformation zone; M85.80 Other specified disorders of bone density and structure, unspecified site ==